=== PATIENT | female | born 1980 | race African-American/Black ===

== ENCOUNTER 2021-03-19 03:48 | Inpatient (IN) | payer MEDICAID ==
[~2021-03-19] VITALS: Ht 175.3 cm; Wt 90.5 kg
[2021-03-19] MEDS ORDERED: METHYLPREDNISOLONE SOD SUCC 125 MG/2 ML VIAL IV STA (04:32)
[2021-03-19] MEDS ORDERED: ONDANSETRON HCL 4MG/2ML INJ IV STA (04:32)
[2021-03-19] MEDS ORDERED: IPRATROPIUM BROMIDE (0.02%) 0.5MG/2.5ML NEB HHN STA (04:32)
[2021-03-19] MEDS ORDERED: MAGNESIUM 2 G PREMIX 50 ML IV ONE (04:45)
[2021-03-19] MEDS: ALBUTEROL (0.083%) 2.5MG/3ML NEB HHN SCH ×3 (04:49→06:50)
[2021-03-19 05:17] LABS: BASOPHILS % 1.4 % (0.0-2.0); EOSINOPHILS % 3.8 % (0.0-5.0); HEMATOCRIT. 31.4 % (36.0-48.0); HEMOGLOBIN. 9.1 g/dL (12.0-16.0); LYMPHOCYTES % 25.2 % (20.0-50.0); MEAN CORPUSCULAR VOLUME 79.1 fL (81.0-99.0); MEAN PLATELET VOLUME 7.9 fl (7.4-10.4); MONOCYTES % 7.2 % (2.0-8.0); NEUTROPHILS % 62.4 % (40.0-76.0); PLATELET 300 x1000/uL (130-400); RED BLOOD CELL COUNT 3.97 mill/uL (4.2-5.4); RED CELL DISTRIBUTION WIDTH 21.2 % (11.6-14.6)
[2021-03-19 05:25] LABS: CHLORIDE 101 mEq/L (98-107)
[2021-03-19] MEDS ORDERED: AZITHROMYCIN 500 MG in DEXT 5% WATER 250 ML IV SCH (05:30)
[2021-03-19] MEDS ORDERED: CEFTRIAXONE 1 G PREMIX 50 ML IV SCH (05:30)
[2021-03-19] MEDS ORDERED: ALBU6.7H9 INH (09:54)
[2021-03-19 10:05] VITALS: BP 108/72
[2021-03-19 10:08] VITALS: BP 108/72
[2021-03-19] MEDS ORDERED: IPRATROPIUM/ALBUTEROL 0.5-3(2.5)MG/3ML NEB HHN PRN ×2 (12:00→17:15)
[2021-03-19] MEDS ORDERED: ONDANSETRON HCL 4MG/2ML INJ IV PRN (12:00)
[2021-03-19 12:10] VITALS: BP 138/86
[2021-03-19 12:58] LABS: TOTAL IRON BINDING CAPACITY 514 ug/dL (250-450)
[2021-03-19] MEDS: GUAIFENESIN 600MG ER TABLET PO SCH ×2 (13:33→23:09)
[2021-03-19] MEDS: ACETAMINOPHEN 325MG TABLET PO PRN (16:23)
[2021-03-19] MEDS: MONTELUKAST SODIUM 10MG TABLET PO SCH (16:38)
[2021-03-19] MEDS: FERROUS SULFATE 325MG TABLET PO SCH (16:38)
[2021-03-19] MEDS: DOCUSATE SODIUM 100MG CAPSULE PO SCH (16:38)
[2021-03-19] MEDS: BENZONATATE 100MG CAPSULE PO PRN (16:57)
[2021-03-19 17:00] VITALS: BP 134/73
[2021-03-19] MEDS: METHYLPREDNISOLONE SOD SUCC 40 MG/ML VIAL IV SCH (17:29)
[2021-03-19] MEDS: IPRATROPIUM/ALBUTEROL 0.5-3(2.5)MG/3ML NEB HHN SCH ×2 (19:46→23:34)
[2021-03-19 20:00] VITALS: BP 143/85
[2021-03-19 22:47] LABS: HCG SCREEN NEGATIVE
[2021-03-20] VITALS: BP 146/81
[2021-03-20] MEDS: METHYLPREDNISOLONE SOD SUCC 40 MG/ML VIAL IV SCH ×3 (00:28→16:53)
[2021-03-20] MEDS: BENZONATATE 100MG CAPSULE PO PRN ×2 (00:28→10:20)
[2021-03-20 04:00] VITALS: BP 135/71
[2021-03-20] MEDS: IPRATROPIUM/ALBUTEROL 0.5-3(2.5)MG/3ML NEB HHN SCH ×6 (04:40→23:31)
[2021-03-20] MEDS ORDERED: CEFTRIAXONE 1,000 MG in DEXTROSE 5% WATER 50 ML IV SCH (06:00)
[2021-03-20 08:43] VITALS: BP 119/60
[2021-03-20] MEDS ORDERED: AZITHROMYCIN 250 MG TABLET PO SCH (09:00)
[2021-03-20] MEDS: DOCUSATE SODIUM 100MG CAPSULE PO SCH ×2 (09:28→16:53)
[2021-03-20] MEDS: GUAIFENESIN 600MG ER TABLET PO SCH ×2 (09:28→21:15)
[2021-03-20] MEDS: FERROUS SULFATE 325MG TABLET PO SCH ×3 (09:28→16:53)
[2021-03-20 12:06] VITALS: BP 122/68
[2021-03-20] MEDS ORDERED: MONT10TA21 PO (15:30)
[2021-03-20] MEDS ORDERED: FLUT1DIS3 INH (15:30)
[2021-03-20] MEDS ORDERED: P20 MT (15:30)
[2021-03-20 16:00] VITALS: BP 143/72
[2021-03-20] MEDS: MONTELUKAST SODIUM 10MG TABLET PO SCH (16:53)
[2021-03-20 20:00] VITALS: BP 121/66
[2021-03-20] MEDS: ACETAMINOPHEN 325MG TABLET PO PRN (21:16)
[2021-03-21] VITALS: BP 116/59
[2021-03-21] MEDS: METHYLPREDNISOLONE SOD SUCC 40 MG/ML VIAL IV SCH ×2 (01:28→08:42)
[2021-03-21 04:00] VITALS: BP 128/77
[2021-03-21] MEDS: IPRATROPIUM/ALBUTEROL 0.5-3(2.5)MG/3ML NEB HHN SCH ×3 (04:52→11:59)
[2021-03-21 08:00] VITALS: BP 116/75
[2021-03-21] MEDS: GUAIFENESIN 600MG ER TABLET PO SCH (08:42)
[2021-03-21] MEDS: DOCUSATE SODIUM 100MG CAPSULE PO SCH (08:42)
[2021-03-21] MEDS: FERROUS SULFATE 325MG TABLET PO SCH ×2 (08:42→12:44)
[2021-03-21 12:00] VITALS: BP 128/83
[2021-03-21] MEDS ORDERED: GUAI600T26 MT (13:29)
[2021-03-21] MEDS ORDERED: BENZ-16 MT (13:29)
[2021-03-21] MEDS ORDERED: FERR-71 MT (13:29)
[2021-03-21] MEDS ORDERED: DOCU-138 MT (13:29)
[2021-03-21 14:27] VITALS: BP 142/83
== END 2021-03-21 15:45 | disposition home health service (06) | DRG 133 ==
LOC: ER 03:48 → EDBD 03:48 → 7WST 05:29 → CANRESERV 08:36 → ENRESERV 08:36 → 8WST 13:48
PROVIDERS: ADMIT Internal Medicine; ATTEND Internal Medicine
DX: J96.20 Acute and chronic respiratory failure, unspecified whether with hypoxia or hypercapnia (principal); J18.9 Pneumonia, unspecified organism; J44.0 Chronic obstructive pulmonary disease with (acute) lower respiratory infection; E44.1 Mild protein-calorie malnutrition; J44.1 Chronic obstructive pulmonary disease with (acute) exacerbation; D64.9 Anemia, unspecified; Z20.822 Contact with and (suspected) exposure to COVID-19; Z79.899 Other long term (current) drug therapy
CPT/HCPCS: 36415; 71045; 71250; 80053; 82728; 83540; 83550; 83605; 83880; 84484; 84703; 85025; 93005; 94640; 99291; J0456; J0696; J2405; J2920; J2930; J3475; J7040; J7060; U0003; U0005